=== PATIENT | male | born 1975 | race American Indian/Alaskan Native ===

== ENCOUNTER 2018-11-17 11:34 | Emergency (ER) | payer SELFPAY ==
--- NOTE | 2018-11-17 11:46 | Emergency Department Report ---
Blank Doc - Documentation Documentation: This is a 43-year-old male that presents to the ED for TB testing and right arm bite powell with some swelling. In the ED patient has blood pressure of 223/170. Patient has history of HTN but denies taking medications. Deneis any headaches or any symptoms. Patient is asymptotic. This initial assessment/diagnostic orders/clinical plan/treatment(s) is/are subject to change based on patient's health status, clinical progression and re- assessment by fellow clinical providers in the ED. Further treatment and workup at subsequent clinical providers discretion. Patient/guardians urged not to elope from the ED as their condition may be serious if not clinically assessed a nd managed. Initial orders include: 1- Patient sent to [facility] for further evaluation and treatment 2- labs
[2018-11-17] MEDS ORDERED: CATAPRES PO ONE ×2 (11:57→13:57)
--- NOTE | 2018-11-17 11:57 | Emergency Department Report ---
ED General Adult HPI - General Chief complaint: High BP Stated complaint: TB TEST/ SKIN SWELLING Time Seen by Provider: 11/17/18 11:44 Source: patient Mode of arrival: Ambulatory Limitations: No Limitations - History of Present Illness Initial comments: Patient is a 43-year-old male that since emergency room with complaints of getting frequent mosquito bites. While in triage patient noted to have elevated blood pressure of 230/170. Patient brought immediately to the acute side of the ER. Patient states that he is not having chest pain or shortness of breath. Patient states his only symptom is he wants was gone all with his skin condition. Patient denies blurry vision and headache. Patient denies dizziness. Patient states he has a history of high blood pressure but stopped taking his medications years ago. -: Sudden Consistency: constant Improves with: none Worsens with: none Associated Symptoms: denies other symptoms. denies: confusion, chest pain, cough, diaphoresis, fever/chills, headaches, loss of appetite, malaise, nausea/vomiting, rash, seizure, shortness of breath, syncope, weakness Treatments Prior to Arrival: none - Related Data Previous Rx's Medication Instructions Recorded Last Taken Type amLODIPine [Norvasc] 10 mg PO DAILY 20 Days #20 tab 11/17/18 Unknown Rx Allergies Allergy/AdvReac Type Severity Reaction Status Date / Time No Known Allergies Allergy Unverified 11/17/18 11:35 ED Review of Systems ROS: Stated complaint: TB TEST/ SKIN SWELLING Other details as noted in HPI Constitutional: denies: chills, fever Eyes: denies: eye pain, eye discharge, vision change ENT: denies: ear pain, throat pain Respiratory: denies: cough, shortness of breath, wheezing Cardiovascular: denies: chest pain, palpitations Endocrine: no symptoms reported Gastrointestinal: denies: abdominal pain, nausea, diarrhea Genitourinary: denies: urgency, dysuria Musculoskeletal: denies: back pain, joint swelling, arthralgia Skin: rash. denies: lesions Neurological: denies: headache, weakness, paresthesias Psychiatric: denies: anxiety, depression Hematological/Lymphatic: denies: easy bleeding, easy bruising ED Past Medical Hx - Past Medical History Previous Medical History?: Yes Hx Hypertension: Yes - Surgical History Past Surgical History?: No - Family History Family history: no significant - Social History Smoking Status: Current Every Day Smoker Substance Use Type: Alcohol - Medications Home Medications: Home Medications Medication Instructions Recorded Confirmed Last Taken Type amLODIPine [Norvasc] 10 mg PO DAILY 20 Days #20 tab 11/17/18 Unknown Rx ED Physical Exam - General Limitations: No Limitations General appearance: alert, in no apparent distress - Head Head exam: Present: atraumatic, normocephalic - Eye Eye exam: Present: normal appearance - ENT ENT exam: Present: mucous membranes moist - Neck Neck exam: Present: normal inspection - Respiratory Respiratory exam: Present: normal lung sounds bilaterally. Absent: respiratory distress - Cardiovascular Cardiovascular Exam: Present: regular rate, normal rhythm. Absent: systolic murmur, diastolic murmur, rubs, gallop - GI/Abdominal GI/Abdominal exam: Present: soft, normal bowel sounds - Rectal Rectal exam: Present: deferred - Extremities Exam Extremities exam: Present: normal inspection - Back Exam Back exam: Present: normal inspection - Neurological Exam Neurological exam: Present: alert, oriented X3 - Psychiatric Psychiatric exam: Present: normal affect, normal mood - Skin Skin exam: Present: warm, dry, intact, normal color. Absent: rash ED Course Vital Signs 11/17/18 11/17/18 11/17/18 11:44 12:04 12:46 Temperature 98.2 F Pulse Rate 88 Respiratory 16 Rate Blood Pressure 223/170 234/173 227/167 Blood Pressure [Left] O2 Sat by Pulse 98 Oximetry 11/17/18 11/17/18 11/17/18 14:12 14:13 14:24 Temperature Pulse Rate 84 Respiratory 16 Rate Blood Pressure 150/109 150/109 Blood Pressure 150/109 [Left] O2 Sat by Pulse 96 Oximetry - Reevaluation(s) Reevaluation #1: Patient's initial exam is done. Patient will be given clonidine. Patient will be connected to the color television console monitor. 11/17/18 11:57 Patient still having elevated blood pressure but much better. Patient's blood pressures improving 11/17/18 13:58 Patient's current blood pressure is 150/100. patient will be discharged. Discussed all results with patient. Patient stable for discharge. Patient agrees to plan of care. Patient given discharge instructions. Patient voiced understanding of discharge instructions. Patient encouraged to take all of his medications and follow-up with a primary care soon as possible for management of his blood pressure. 11/17/18 14:13 ED Medical Decision Making - Lab Data Result diagrams: 11/17/18 11:50 11/17/18 13:18 - EKG Data -: EKG Interpreted by Me EKG shows normal: sinus rhythm, axis, intervals, QRS complexes, ST-T waves Rate: normal - EKG Data Interpretation: [facility] - Medical Decision Making pt is a 43-year-old male that presents to emergency room for skin sensitivity and found to have elevated blood pressure. Patient has a 3 blood pressure m edication hypertension but has not been taking his blood pressure medications for many years. Patient given medication in the ER to bring his blood pressure down to box of range. Patient will be given Norvasc 10 mg and discharged home. Patient given discharge instructions. Labs unremarkable. - Differential Diagnosis hypertension. Hypertensive emergency. Rash Critical Care Time: Yes Critical care attestation.: If time is entered above; I have spent that time in minutes in the direct care of this critically ill patient, excluding procedure time. Critical Care Time: 55 minutes ED Disposition Clinical Impression: Malignant hypertension, Rash Hypertension Qualifiers: Hypertension type: essential hypertension Qualified Code(s): I10 - Essential (primary) hypertension Disposition: - TO HOME OR SELFCARE Is pt being admited?: No Does the pt Need Aspirin: No Condition: Stable Instructions: How to Take a Blood Pressure (ED), DASH Eating Plan (ED), Low Sodium Diet (ED), Hypertensive Crisis (ED), Hypertension (ED) Additional Instructions: Patient to follow-up with primary care in 2-3 days. Patient to monitor blood pressure and keep a blood pressure log and take blood pressure log to primary care.. Patient eat a heart healthy and a low-salt diet. Patient to return to ER if condition worsens. Patient to take meds as directed. Patient to increase water. Patient to rest. Prescriptions: amLODIPine [Norvasc] 10 mg PO DAILY 20 Days #20 tab Referrals: KARISSA MCKNIGHT MD [Primary Care Provider] - 2-3 Days Time of Disposition: 14:18
[2018-11-17 12:00] LABS: Basophils % (Auto) 1.1 % (0.0-1.8); Eosinophils # (Auto) 0.2 K/mm3 (0.0-0.4); Eosinophils % (Auto) 5.3 % (0.0-4.3); Hematocrit 48.2 % (35.5-45.6); Hemoglobin 16.1 gm/dl (11.8-15.2); Lymphocytes # (Auto) 1.3 K/mm3 (1.2-5.4); Lymphocytes % (Auto) 28.6 % (13.4-35.0); Mean Corpuscular HGB Conc 34 % (32-34); Mean Corpuscular Volume 86 fl (84-94); Monocytes # (Auto) 0.4 K/mm3 (0.0-0.8); Monocytes % (Auto) 9.7 % (0.0-7.3); Platelet Count 213 K/mm3 (140-440); Red Blood Count 5.59 M/mm3 (3.65-5.03); Red Cell Distribution Width 14.1 % (13.2-15.2)
[2018-11-17] MEDS ORDERED: NORVASC PO ONE ×2 (12:32→13:57)
[2018-11-17 12:48] LABS: BUN/Creatinine Ratio TNR; Blood Urea Nitrogen TNR mg/dL (9-20); Calcium TNR mg/dL (8.4-10.2); Hemolysis Index TNR
[2018-11-17 13:36] LABS: Bilirubin,Urine NEG (Negative); Blood,Urine NEG (Negative); Color,Urine Yellow (Yellow); Mucus,Urine FEW /HPF; Urobilinogen,Urine < 2.0 mg/dL (<2.0)
[2018-11-17 13:52] LABS: BUN/Creatinine Ratio 9; Blood Urea Nitrogen 12 mg/dL (9-20); Calcium 8.7 mg/dL (8.4-10.2); Hemolysis Index 3
[2018-11-17 14:13] VITALS: BP 150/109
== END 2018-11-17 14:28 | disposition home or self-care (01) ==
LOC: ED 11:34
DX: I10 Essential (primary) hypertension (principal); F17.200 Nicotine dependence, unspecified, uncomplicated
CPT/HCPCS: 36415; 80048; 81001; 85025; 93005; 93010; 99291